=== PATIENT | female | born 1990 | race Caucasian/White ===

== ENCOUNTER 2024-06-21 07:13 | Emergency (ER) | payer BC, MEDICAID, SELFPAY ==
[2024-06-21 07:13] VITALS: BMI 39.3
[2024-06-21 07:16] VITALS: BP 139/84; PULSE 80; RESP 20; TEMP 36.7; O2SAT 98
--- NOTE | 2024-06-21 07:34 | EDNOTE_ITS ---
ED Skin Abcess FB-RME/HPI General Chief complaint: Eye Problems Stated complaint: SWOLLEN RIGHT EYE Time Seen by Provider: 06/21/24 07:16 Arrival date/time: 06/21/24 07:13 34-year-old female presents emergency department complaints of chest/insect bite right temporal region patient reports has been on doxycycline for this reports swelling and pain Limitations: no limitations Related Data Home Medications ?Medication ?Instructions ?Recorded ?Confirmed aspirin 81 mg capsule mg 09/13/23 vit no.95-ferrous tab PO 09/13/23 fumarate 28 mg-folic acid 800 mcg tablet () Previous Rx's ?Medication ?Instructions ?Recorded hydrocodone 5 mg-acetaminophen 325 1 tab PO Q4H PRN pain #20 tabs 09/15/23 mg tablet clindamycin HCl 150 mg capsule 450 mg (3 x 150 mg) PO TID 7 days 06/21/24 #63 caps ibuprofen 800 mg tablet 800 mg PO TID PRN pain #30 tabs 06/21/24 Allergies Allergy/AdvReac Type Severity Reaction Status Date / Time No Known Allergies Allergy Unverified 09/14/23 09:03 Review of Systems Review of Systems Systems Reviewed: All systems reviewed, normal except as documented Constitutional Constitutional: Reports system reviewed and no additional complaints, except as documented, Denies fever(s) and Denies headache(s) Eyes Eyes: Reports system reviewed and no additional complaints, except as documented and Denies blurry vision ENT Ears, Nose, Mouth, and Throat: Reports system reviewed and no additional complaints, except as documented, Denies headache(s), Denies nasal congestion a nd Denies nasal discharge Cardiovascular Cardiovascular: Reports system reviewed and no additional complaints, except as documented, Denies chest pain and Denies dyspnea Respiratory Respiratory: Reports system reviewed and no additional complaints, except as documented, Denies chest congestion, Denies cough and Denies dyspnea Gastrointestinal Gastrointestinal: Reports system reviewed and no additional complaints, except as documented and Denies abdominal pain Integumentary/Breasts Skin/Breast: Reports system reviewed and no additional complaints, except as documented, Denies rash and Reports other (Abscess right temporal region) Neurologic Neurologic: Reports system reviewed and no additional complaints, except as documented, Reports as per HPI and Denies headache(s) Past Medical History Past Medical History NEUROLOGIC: Positive Neurological Disorders and Seizures (2013) CARDIAC: Positive Cardiac Disorders (Elcampsia 2014 with last ); Negative Congestive Heart Failure RESPIRATORY: Positive Asthma; Negative Chronic Obstructive Pulmonary Disease (COPD) GASTROINTESTINAL: Negative Gastrointestinal Disorders GENITOURINARY: Negative Genitourinary Disorders or Renal Disease REPRODUCTIVE: Positive Previous Pregnancies (x3); Negative Endometriosis, Genital Herpes, Gonorrhea, Pelvic Inflammatory Disease or Syphilis MUSCULOSKELETAL: Positive Musculoskeletal Disorders (Carpel Tunnel Syndrom) ENDOCRINE: Negative Endocrine Disorders, Diabetes Mellitus Type 1 or Diabetes Mellitus Type 2 HEMATOLOGIC: Negative Blood Disorders or Anemia PSYCHO/SOCIAL: Positive Recreational Drug Use, Bipolar Disorder, Depression, Anxiety and Depression OTHER HISTORY: Negative Autoimmune Disease, Blood Transfusions, Blood Transfusion Reaction, Anesthesia Reactions or Cancer Family History FAMILY HISTORY: Negative Family Psychiatric Problems, Family Respiratory Disorders, Family Cardiac Disorders, Family Gastrointestinal Problems, Family Cancer, Family Surgery or Family Anesthesia Reaction Surgical History SURGICAL: Positive Tonsillectomy (5 y/o), Adenoidectomy (10 y/o) and Section Social History SMOKING STATUS: Never smoker ED Exam General Limitations: Present no limitations General appearance: Present alert and in no apparent distress Head Head exam: Present atraumatic Eye Eye exam: Present normal appearance, PERRL and EOMI ENT ENT exam: Present normal exam, normal oropharynx and mucous membranes moist Neck Neck exam: Present normal inspection, full ROM and trachea midline Chest Chest inspection: Present normal inspection and symmetric chest wall rise Respiratory Respiratory exam: Present normal lung sounds bilaterally Cardiovascular Cardiovascular exam: Present regular rate, normal rhythm and normal heart sounds Abdominal Exam Abdominal exam: Present soft and normal bowel sounds Extremities Exam Extremities exam: Present normal inspection and full ROM Back Exam Back exam: Present normal inspection and full ROM Neurological Exam Neurological exam: Present alert, oriented X3, CN II-XII intact, normal gait and reflexes normal; Absent motor sensory deficit Psychiatric Psychiatric exam: Present normal affect and normal mood Skin Skin exam: Present warm, dry and other (Abscess right temporal region) Course Quality Measures none Orders Category Date Time Status Lidocaine 1% 20 ml [Xylocaine 1% 20 ML] Med 06/21/24 07:35 Discontinued 2.1 ml INFL X1 ONE cefTRIAXone [Rocephin] Med 06/21/24 07:35 Discontinued 1,000 mg IM X1 ONE Procedures -ED Abscess I/D Site: face Side (if applicable): right Local Anesthetic: lidocaine 1% Amount of anesthesia used (mL): 2 Technique: incised with #11 blade Amount of fluid expressed (mL): 3 Irrigation: No Packing used?: none Complications: pain Skin / Abscess / Foreign Body MDM Narrative MDM Narrative:: 34-year-old female presents emergency department complaints of chest/insect bite right temporal region patient reports has been on doxycycline for this reports swelling and pain On exam patient appears to have a small abscess approximately 2 cm in diameter I&D performed pus was expressed from the abscess Patient given Rocephin here discharge home on clindamycin Patient discharged home in no distress to follow-up with primary care doctor in the next 24 to 48 hours and for any worsening symptoms to return to the ER immediately Patient data External records reviewed:: [facility] previous records Clinical information provided by:: patient Social determinants that could affect healthcare access:: none Patient has the following chronic illnesses:: None How is presenting disease/condition affected by chronic disease/condition?: no chronic disease Evaluation data The following diagnostics were reviewed and interpreted by me:: other (specify) (N/A) Lab and/or radiology exams considered but not ordered:: Consider not ordered Interpretation Summary: N/A Medications / Prescriptions Medications or Prescriptions considered but not ordered:: Given Medication administrations:: Medication Administration History Discontinued Medications Ceftriaxone Sodium (Ceftriaxone Sod Inj 1,000 Mg Vial) 1,000 mg IM X1 ONE Stop: 06/21/24 07:36 Last Admin: 06/21/24 07:47 Dose: 1,000 mg Documented By: TM Lidocaine HCl (Lidocaine Hcl 1% 20 Ml Vial) 2.1 ml INFL X1 ONE Stop: 06/21/24 07:36 Last Admin: 06/21/24 07:47 Dose: 2.1 ml Documented By: TM Given Consultations Consultation(s) initiated? (list below): No Diagnosis Skin/Abscess Differential Diagnosis: abscess of skin or subcutaneous tissue and cellulitis Most likely diagnosis given after review of the tests above:: Abscess Admission Indicated Admission indicated?: not indicated Admission Request Was there a request for admission?: No Disposition Plan Disposition Plan: Discharge Discharge Attestation Discharge Attestation: The patient and all family members were given an opportunity to ask questions and understood the discharge instructions. Discharge instructions specifically effects, indications for sooner follow up or return to the emergency department, and the expected course of current diagnosis. Patient condition: Stable Discharge Plan Plan Patient Disposition: HOME (Self Care) Disposition Comment: Stable Prescriptions/Referrals Prescriptions/Med Rec: New ibuprofen 800 mg tablet 800 mg PO TID PRN (Reason: pain) Qty: 30 0RF clindamycin HCl 150 mg capsule 450 mg PO TID 7 Days Qty: 63 0RF No Action PNV cmb#95-ferrous fumarate-FA [] 28 mg iron- 800 mcg Tablet PO aspirin 81 mg Capsule hydrocodone-acetaminophen 5-325 mg tablet 1 tab PO Q4H MDD 4 PRN (Reason: pain) Qty: 20 0RF Problem List Clinical Impression: Abscess of face Patient/Caregiver Discharge Instructions Education Materials: ED Abscess, Incision And Drainage Additional Instructions: Please follow up with your primary care doctor in the next 24-48hrs for any worsening symptoms return here immediately Print Language: Citizen Of The [place] Stand Alone Forms: Marylou Award Info., Patient Portal Info Letter PA/VOICE OVER ARTIST Supervising Physician RICARDO/MAYCOL Supervising Physician: Dr. morales
[2024-06-21] MEDS: LIDOCAINE HCL 1% 20 ML VIAL 2.1 ML INFL (07:47)
[2024-06-21] MEDS: cefTRIAXone SOD INJ 1,000 MG VIAL 1000 MG IM (07:47)
== END 2024-06-21 07:52 | disposition home or self-care (01) ==
LOC: SERX 07:55
PROVIDERS: Emergency Provider Emergency Medicine
DX: L02.01 Cutaneous abscess of face (principal)
CPT/HCPCS: 10060; 96372; 99283; J0696; J3490

== ENCOUNTER → 2025-02-17 | Outpatient (CLI) | payer BC, SELFPAY | END | disposition home or self-care (01) | LOC: SLDO 14:31 | PROVIDERS: Referring Provider Registered Nurse; Visit Provider Registered Nurse | DX: L02.13 Carbuncle of neck (principal) | CPT/HCPCS: 87070; 87077; 87186; 87205 ==

== ENCOUNTER 2025-07-14 16:04 | Emergency (ER) | payer BC, SELFPAY ==
[2025-07-14 16:18] VITALS: BP 144/94; PULSE 78; RESP 18; TEMP 36.9; O2SAT 99; BMI 40.2
--- NOTE | 2025-07-14 16:26 | XR_ITS ---
Examination: OB Transvaginal ultrasound of the pelvis, complete Technique: Transvaginal sonographic images pelvis performed using longoria scale imaging Exam date and time: July 14, 2025, 1639 hours INDICATIONS: Vaginal bleeding and pelvic pain onset today. FINDINGS: Uterus 11.0 cm Intrauterine gestational sac 1.8 cm corresponds to 6 weeks 5 days gestational age No pole, no cardiac activity, yolk sac not seen Right ovary obscured by bowel gas Left ovary 2.8 cm arterial flow IMPRESSION: Empty intrauterine gestational sac corresponding to 6 weeks 5 days gestational age No pole, no cardiac activity Recommend continued short-term follow-up to exclude demise.
--- NOTE | 2025-07-14 16:26 | EDNOTE_ITS ---
<Statement entered by Kristin Causey MD - 07/30/25 17:42> As co-signing physician, I was present and available for consult prn. I concur with the plan and care as documented by the midlevel provider. ED OB Contraction Preg RMI/HPI General Chief complaint: Vaginal Bleeding Stated complaint: spotting, 7wks preg Time Seen by Provider: 07/14/25 16:07 Source: patient, RN notes reviewed and old records reviewed Arrival date/time: 07/14/25 16:04 Mode of arrival: ambulatory Limitations: no limitations RME / HPI RME / HPI Narrative: 35yof A3 approx 6-7 weeks gestation presents to ED for vaginal spotting that started yesterday. Patient reports mild pelvic cramping. No fever, nausea/vomiting, back pain or dysuria reported. No medications or treatments since onset. LMP 04/02/25, history of irregular cycles. Related Data Home Medications ?Medication ?Instructions ?Recorded ?Confirmed aspirin 81 mg capsule mg 09/13/23 vit no.95-ferrous tab PO 09/13/23 fumarate 28 mg-folic acid 800 mcg tablet () Previous Rx's ?Medication ?Instructions ?Recorded hydrocodone 5 mg-acetaminophen 325 1 tab PO Q4H PRN pa in #20 tabs 09/15/23 mg tablet ibuprofen 800 mg tablet 800 mg PO TID PRN pain #30 t abs 06/21/24 Allergies Allergy/AdvReac Type Severity Reaction Status Date / Time No Known Allergies Allergy Unverified 07/14/25 16:05 Review of Systems Review of Systems Systems Reviewed: All systems reviewed, normal except as documented Constitutional Constitutional: Denies chills and Denies fever(s) Gastrointestinal Gastrointestinal: Denies nausea and Denies vomiting Genitourinary Genitourinary: Reports abnormal vaginal bleeding, Denies dysuria and Reports pelvic pain Musculoskeletal Musculoskeletal: Denies back pain Past Medical History Past Medical History GASTROINTESTINAL: Positive Obesity REPRODUCTIVE: Positive Hx Polycystic Ovarian Syndrome Surgical History SURGICAL: Positive Tympanostomy Tube, Tonsillectomy, Section (x2) and Hx Cholecystectomy Social History SMOKING STATUS: Never smoker SUBSTANCE USE: does not use ALCOHOL: Never ED Exam General Limitations: Present no limitations General appearance: Present alert, in no apparent distress and obese Head Head exam: Present atraumatic and normocephalic Eye Eye exam: Present normal appearance, PERRL and EOMI ENT ENT exam: Present normal exam and mucous membranes moist Neck Neck exam: Present normal inspection and full ROM Chest Chest inspection: Present normal inspection and symmetric chest wall rise Respiratory Respiratory exam: Present normal lung sounds bilaterally; Absent respiratory distress Cardiovascular Cardiovascular exam: Present regular rate and normal rhythm Abdominal Exam Abdominal exam: Present soft; Absent distention, tenderness, guarding or rebound Extremities Exam Extremities exam: Present normal inspection and full ROM Neurological Exam Neurological exam: Present alert and oriented X3 Psychiatric Psychiatric exam: Present normal affect and normal mood Skin Skin exam: Present warm, dry, intact and normal color Course Quality Measures none Orders Category Date Time Status US OB transvaginal Stat Exams 07/14/25 16:26 Completed Beta HCG,Quantitative Stat Lab 07/14/25 16:30 Completed CBC Stat Lab 07/14/25 16:30 Completed CMP [Comprehensive Metabolic Panel] Stat Lab 07/14/25 16:30 Completed HCG Qualitative,Urine Stat Lab 07/14/25 16:55 Completed UA [Urinalysis] Stat Lab 07/14/25 16:55 Completed Vital Signs Vital signs: Vital Signs Temperature 98.4 F 07/14/25 16:18 Pulse Rate 78 07/14/25 16:18 Respiratory Rate 18 07/14/25 16:18 Blood Pressure 144/94 H 07/14/25 16:18 Pulse Oximetry (%) 99 07/14/25 16:18 Oxygen Delivery Method Room Air 07/14/25 16:18 Vaginal Bleeding MDM Narrative MDM Narrative: 35yof A3 approx 6-7 weeks gestation presents to ED for vaginal spotting that started yesterday. Patient reports mild pelvic cramping. No fever, nausea/vomiting, back pain or dysuria reported. No medications or treatments since onset. LMP 04/02/25, history of irregular cycles. Patient updated on labs and imaging. Encourage close follow-up with OB. Stable for discharge, RTED precautions given. Patient data External records reviewed:: [facility] [place] previous records (06/21/24 ED visit for facial abscess) Clinical information provided by:: patient Social determinants that could affect healthcare access:: none Patient has the following chronic illnesses:: PCOS, obesity How is presenting disease/condition affected by chronic disease/condition?: uneffected by Evaluation data The following diagnostics were reviewed and interpreted by me:: lab results and radiology exam(s) Lab and/or radiology exams considered but not ordered:: none Interpretation Summary: No leukocytosis No anemia No NIRANJAN HCG [id number] Ob ultrasound: Intrauterine gestational sac per my read, no pole or cardiac activity Medications / Prescriptions Medications or Prescriptions considered but not ordered:: No antibiotics recommended at this time Medication administrations:: none Consultations Consultation(s) initiated? (list below): No Diagnosis Vaginal Bleeding Differential Diagnosis: missed , threatened , dysfunctional uterine bleeding, incomplete and ectopic without intrauterine Most likely diagnosis given after review of the tests above:: threatened miscarriage Admission Indicated Admission indicated?: not indicated Admission Request Was there a request for admission?: No Disposition Plan Disposition Plan: Discharge Discharge Attestation Discharge Attestation: The patient and all family members were given an opportunity to ask questions and understood the discharge instructions. Discharge instructions specifically effects, indications for sooner follow up or return to the emergency department, and the expected course of current diagnosis. Patient condition: Stable Discharge Plan Plan Patient Disposition: HOME (Self Care) Patient condition on transfer: Stable Prescriptions/Referrals Prescriptions/Med Rec: No Action PNV no.95-ferrous fumarate-FA [] 28 mg iron- 800 mcg Tablet PO aspirin 81 mg Capsule hydrocodone-acetaminophen 5-325 mg tablet 1 tab PO Q4H MDD 4 PRN (Reason: pain) Qty: 20 0RF ibuprofen 800 mg tablet 800 mg PO TID PRN (Reason: pain) Qty: 30 0RF Referrals: Martin Shea MD [Physician, PAN SHOVER] Referral Note: Call to schedule an appointment for visit. No Primary/Family,Physician [Primary Care Provider] - In 1 week Problem List Clinical Impression: Threatened miscarriage in early Patient/Caregiver Discharge Instructions Education Materials: ED Possible Miscarriage ... Additional Instructions: [place]CG was [address] today please follow-up with your OB within the following week for hCG recheck. Print Language: [place] Stand Alone Forms: Marylou Award Info., Patient Portal Info Letter PA/SLOT HOST Supervising Physician RICARDO/MAYCOL Supervising Physician: Padilla
[2025-07-14 16:36] LABS: Basophils # (Auto) 0.0 Thou/mm3 (0.0-0.2); Basophils % (Auto) 0 % (0-2.5); Eosinophils # (Auto) 0.3 Thou/mm3 (0.0-0.5); Eosinophils % (Auto) 2 % (0-10); Hematocrit 42.1 % (36.0-46.0); Hemoglobin 14.0 g/dL (12.0-16.0); Immature Granulocytes Auto 0.03 Thou/mm3 (0.00-0.00); Lymphocytes # (Auto) 2.9 Thou/mm3 (1.0-4.8); Lymphocytes % (Auto) 27 % (10-50); Mean Corpuscular HGB Conc 33.3 g/dl (31.0-37.0); Mean Corpuscular Hemoglobin 30.4 pg (25.0-35.0); Mean Corpuscular Volume 91 fL (80-100); Monocytes # (Auto) 0.8 Thou/mm3 (0.0-0.8); Monocytes % (Auto) 7 % (0-12); Neutrophils # (Auto) 6.7 Thou/mm3 (1.8-7.7); Neutrophils % (Auto) 62 % (37-80); Nucleated Red Blood Cell # 0.00 Thou/mm3 (0.00-0.00); Nucleated Red Blood Cell % 0 /100 WBC (0); Platelet Count 263 Thou/mm3 (140-440); RDW Standard Deviation 42.9 fL (36.4-46.3); Red Blood Count 4.61 Miln/mm3 (4.00-5.20); White Blood Count 10.7 Thou/mm3 (3.6-11.0)
[2025-07-14 16:57] LABS: Alanine Aminotransferase 42 U/L (10-49); Albumin, Serum 4.8 gm/dL (3.5-5.0); Albumin/Globulin Ratio 1.6 (1.2-2.2); Alkaline Phosphatase 53 U/L (46-116); Anion Gap 10 (7-16); Aspartate Amino Transferase 28 U/L (0-34); BUN/Creatinine Ratio 14 Ratio (12-20); Bilirubin,Total 0.5 mg/dL (0.3-1.2); Blood Urea Nitrogen 14 mg/dL (9-23); Calcium 9.1 mg/dL (8.3-10.6); Calcium (Corrected) 9.1 mg/dL (8.5-10.1); Carbon Dioxide 21.6 mMol/L (20.0-31.0); Chloride 107 mMol/L (98-107); Creatinine (Component) 1.0 mg/dL (0.6-1.3); Estimated Creatinine Clearance 122.3 mL/min (>60); Globulin 3.0 gm/dL (2.3-3.5); Glucose 92 mg/dL (74-106); Osmolality,Calculated 278 (275-295); Potassium 4.1 mMol/L (3.4-5.1); Sodium 139 mMol/L (136-145); Total Protein 7.8 gm/dL (5.7-8.2); eGFR > 60 See Note
[2025-07-14 17:29] LABS: Beta HCG,Quantitative 16184 mIU/mL (<5.0)
[2025-07-14 17:44] LABS: Collection Type, Urine Clean Catch
[2025-07-14 17:52] LABS: HCG Qualitative,Urine Positive
[2025-07-14 17:58] LABS: Bacteria,Urine Rare; Bilirubin,Urine Negative (Negative); Blood,Urine Trace (Negative); Clarity,Urine Clear (Clear/Hazy); Color,Urine Lt-Yellow (Lt Yel-Yel); Glucose, Urine Negative (Negative); Ketones,Urine Negative (Negative); Leukocyte Esterase,Urine Negative (Negative); Nitrite,Urine Negative (Negative); PH,Urine 6.0 (5.0-7.0); Protein,Urine Negative (Neg - Trace); RBC,Urine 1 /hpf (0-3); Specific Gravity,Urine 1.022 (1.001-1.035); Squamous Epithelial Cell,Urine 2 /hpf (0-5); Urobilinogen,Urine Negative mg/dL (0.0-1.0); WBC,Urine 1 /hpf (0-5)
== END 2025-07-14 18:23 | disposition home or self-care (01) ==
PROVIDERS: Physician Assistant; Emergency Provider Emergency Medicine
DX: O20.0 Threatened abortion (principal); Z3A.01 Less than 8 weeks gestation of pregnancy
CPT/HCPCS: 36415; 76817; 80053; 81001; 81025; 84702; 85025; 99283